=== PATIENT | female | born 1990 | race Caucasian/White ===

== ENCOUNTER 2017-12-28 16:41 | Inpatient (IN) | payer OTHER ==
[2017-12-28 18:30] VITALS: BMI 22.3
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
[2017-12-28] MEDS ORDERED: IBUPROFEN 400 MG TABLET (FP) PO PRN (21:23)
[2017-12-28] MEDS ORDERED: MAGNESIUM CITRATE 300 ML BOTTLE PO PRN (21:23)
[2017-12-28] MEDS ORDERED: guaiFENesin/D-METHORPHAN HB 10 ML UNIT-DOSE CUPS PO PRN (21:23)
[2017-12-28] MEDS ORDERED: diazePAM 5 MG TABLET PO ONE (21:23)
[2017-12-28] MEDS ORDERED: MAGNESIUM HYDROX 2400MG/30ML ORAL SUSPENSION 30 ML CUP PO PRN (21:23)
[2017-12-28] MEDS ORDERED: MAG HYDROX/AL HYDROX/SIMETH 30 ML UNIT-DOSE CUP PO PRN (21:23)
[2017-12-28] MEDS ORDERED: NICOTINE POLACRILEX 2 MG GUM BC PRN (21:23)
[2017-12-28] MEDS ORDERED: P-EPHED 60MG/TRIPROLIDI 2.5MG TABLET PO PRN (21:23)
[2017-12-28] MEDS ORDERED: LOPERAMIDE HCL 2 MG CAPSULE PO PRN (21:23)
[2017-12-28] MEDS ORDERED: MENTHOL/PHENOL 1 EACH UD MM PRN (21:23)
[2017-12-29 00:11] LABS: URINE APPEARANCE SLCLOUDY; URINE BILIRUBIN NEGATIVE (NEGATIVE); URINE BLOOD NEGATIVE (NEGATIVE); URINE COLOR LTYELLOW; URINE GLUCOSE (UA) NEGATIVE (NEGATIVE); URINE KETONE NEGATIVE (NEGATIVE); URINE LEUK ESTERASE TRACE (NEGATIVE); URINE NITRITE NEGATIVE (NEGATIVE); URINE PROTEIN NEGATIVE (NEGATIVE); URINE UROBILINOGEN NEGATIVE mg/dL (0.2-1.0)
[2017-12-29] MEDS: diazePAM 5 MG TABLET PO SCH ×4 (00:58→22:54)
[2017-12-29 01:01] LABS: EPI CELLS MODERATE /HPF (FEW); URINE BACTERIA RARE /hpf (NONE SEEN); URINE MUCUS RARE
[2017-12-29] MEDS: DOCUSATE SODIUM 100 MG CAPSULE (FP) PO SCH ×2 (01:06→22:54)
[2017-12-29] MEDS: THIAMINE HCL 100 MG TABLET (FP) PO SCH ×2 (01:06→22:53)
[2017-12-29] MEDS ORDERED: METHADONE HCL 10 MG TABLET ONE (04:51)
[2017-12-29] MEDS ORDERED: METHADONE HCL 5 MG TABLET ONE (04:51)
[2017-12-29] MEDS ORDERED: METHADONE HCL 40 MG DISPERSABLE TABLET ONE (04:51)
[2017-12-29] MEDS: METHADONE 80 MG, METHADONE 20 MG, METHADONE 5 MG PO SCH (05:32)
[2017-12-29] MEDS ORDERED: METHADONE HCL 10 MG TABLET PO SCH (06:00)
[2017-12-29] MEDS: diazePAM 5 MG TABLET PO PRN ×3 (10:32→18:03)
[2017-12-29] MEDS: PRENATAL VITAMINS W/ FOLIC ACID TABLET (FP) PO SCH (10:32)
[2017-12-29] MEDS: ACETAMINOPHEN 325 MG TABLET (FP) PO PRN (10:33)
[2017-12-29] MEDS: NICOTINE 21 MG/24 HOURS TOPICAL PATCH TD SCH (10:35)
[2017-12-29 10:55] LABS: HEMATOCRIT 34.6 % (32.4-45.2); HEMOGLOBIN 11.2 GM/dL (10.7-15.3); MCH 27.3 pg (25.7-33.7); MCHC 32.3 g/dl (32.0-36.0); MEAN CELL VOLUME 84.5 fl (80-96); MEAN PLT VOLUME 9.6 fl (7.5-11.1); PLATELET COUNT 204 K/MM3 (134-434); RBC 4.09 M/mm3 (3.60-5.2); RDW 17.6 % (11.6-15.6)
[2017-12-29 11:08] LABS: ALBUMIN 3.6 g/dl (3.4-5.0); ANION GAP 4 (8-16); BLOOD UREA NITROGEN 10 mg/dL (7-18); CALCIUM 9.2 mg/dL (8.5-10.1); CHLORIDE 101 mmol/L (98-107); CO2 35 mmol/L (21-32); CREATININE 0.8 mg/dL (0.55-1.02); GLUCOSE,RANDOM 94 mg/dL (74-106); SGOT/AST 22 U/L (15-37); SGPT/ALT 17 U/L (12-78); SODIUM 140 mmol/L (136-145)
[2017-12-29 11:10] LABS: ALK PHOS 99 U/L (45-117); BILIRUBIN,TOTAL 0.3 mg/dL (0.2-1.0); TOT PROT 7.1 g/dl (6.4-8.2)
--- NOTE | 2017-12-29 11:11 | EKG ---
Test Reason : Blood Pressure : / mmHG Vent. Rate : 062 BPM Atrial Rate : 062 BPM P-R Int : 134 ms QRS Dur : 082 ms QT Int : 454 ms P-R-T Axes : 048 066 039 degrees QTc Int : 460 ms SINUS RHYTHM WITH PREMATURE SUPRAVENTRICULAR COMPLEXES OTHERWISE NORMAL ECG NO PREVIOUS ECGS AVAILABLE Confirmed by NELIDA EASTON, KIERAN ([id number]) on 12/29/2017 11:11:08 AM Referred By: Arnoldo Napier Confirmed By:KIERAN KRAUSE MD
[2017-12-29] MEDS ORDERED: FLU VACCINE QUAD 60 MCG/0.5 ML (MDV 17-18) IM ONE (12:00)
--- NOTE | 2017-12-29 12:23 | PN ---
[facility] CIWA - CIWA Score Nausea/Vomitin-Mild Nausea/No Vomiting Muscle Tremors: 4-Moderate,w/Arms Extend Anxiety: 4-Mod. Anxious/Guarded Agitation: 4-Moderately Restless Paroxysmal Sweats: 1-Minimal Palms Moist Orientation: 1-Uncertain about Date Tacttile Disturbances: 1-Very Mild Itch/Numbness Auditory Disturbances: 0-None Visual Disturbances: 0-None Headache: 2-Mild CIWA-Ar Total Score: 18 BHS Progress Note (SOAP) Subjective: nausea sweat tremor anxiety irritable agitation Objective: 12/29/17 12:21 Vital Signs Temperature 97.7 F 12/29/17 11:42 Pulse Rate 52 L 12/29/17 11:42 Respiratory Rate 16 12/29/17 11:42 Blood Pressure 107/66 12/29/17 11:42 O2 Sat by Pulse Oximetry (%) Laboratory Last Values WBC 6.0 K/mm3 (4.0-10.0) 12/29/17 08:00 RBC 4.09 M/mm3 (3.60-5.2) 12/29/17 08:00 Hgb 11.2 GM/dL (10.7-15.3) 12/29/17 08:00 Hct 34.6 % (32.4-45.2) 12/29/17 08:00 MCV 84.5 fl (80-96) 12/29/17 08:00 MCH 27.3 pg (25.7-33.7) 12/29/17 08:00 MCHC 32.3 g/dl (32.0-36.0) 12/29/17 08:00 RDW 17.6 % (11.6-15.6) H 12/29/17 08:00 Plt Count 204 K/MM3 (134-434) 12/29/17 08:00 MPV 9.6 fl (7.5-11.1) 12/29/17 08:00 Sodium 140 mmol/L (136-145) 12/29/17 08:00 Potassium 5.0 mmol/L (3.5-5.1) 12/29/17 08:00 Chloride 101 mmol/L (98-107) 12/29/17 08:00 Carbon Dioxide 35 mmol/L (21-32) H 12/29/17 08:00 Anion Gap 4 (8-16) L 12/29/17 08:00 BUN 10 mg/dL (7-18) 12/29/17 08:00 Creatinine 0.8 mg/dL (0.55-1.02) 12/29/17 08:00 Creat Clearance w eGFR > 60 (>60) 12/29/17 08:00 Random Glucose 94 mg/dL (74-106) 12/29/17 08:00 Calcium 9.2 mg/dL (8.5-10.1) 12/29/17 08:00 Total Bilirubin 0.3 mg/dL (0.2-1.0) 12/29/17 08:00 AST 22 U/L (15-37) 12/29/17 08:00 ALT 17 U/L (12-78) 12/29/17 08:00 Alkaline Phosphatase 99 U/L (45-117) 12/29/17 08:00 Total Protein 7.1 g/dl (6.4-8.2) 12/29/17 08:00 Albumin 3.6 g/dl (3.4-5.0) 12/29/17 08:00 Urine Color Ltyellow 12/28/17 00:00 Urine Appearance Slcloudy 12/28/17 00:00 Urine pH 6.0 (5.0-8.0) 12/28/17 00:00 Ur Specific [place] 1.010 (1.001-1.035) 12/28/17 00:00 Urine Protein Negative (NEGATIVE) 12/28/17 00:00 Urine Glucose (UA) Negative (NEGATIVE) 12/28/17 00:00 Urine Ketones Negative (NEGATIVE) 12/28/17 00:00 Urine Blood Negative (NEGATIVE) 12/28/17 00:00 Urine Nitrite Negative (NEGATIVE) 12/28/17 00:00 Urine Bilirubin Negative (NEGATIVE) 12/28/17 00:00 Urine Urobilinogen Negative mg/dL (0.2-1.0) 12/28/17 00:00 Ur Leukocyte Esterase Trace (NEGATIVE) 12/28/17 00:00 Urine WBC (Auto) 1 /hpf (3-5) 12/28/17 00:00 Urine RBC (Auto) <1 /hpf (0-3) 12/28/17 00:00 Ur Epithelial Cells Moderate /HPF (FEW) 12/28/17 00:00 Urine Bacteria Rare /hpf (NONE SEEN) 12/28/17 00:00 Urine Mucus Rare 12/28/17 00:00 RPR Titer Nonreactive (NONREACTIVE) 12/29/17 08:00 HIV 1&2 Antibody Screen Negative 12/29/17 08:00 HIV P24 Antigen Negative 12/29/17 08:00 lab noted Assessment: 12/29/17 12:22 withdrawal sx Plan: continue detox
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
[2017-12-29] MEDS: SERTRALINE HCL 50 MG TABLET (FP) PO SCH (18:03)
[2017-12-29] MEDS: GABAPENTIN 300 MG CAPSULE (FP) PO SCH (22:54)
[2017-12-29] MEDS: MIRTAZAPINE 30 MG TABLET (FP) PO SCH (22:54)
[2017-12-30] MEDS ORDERED: METHADONE HCL 5 MG TABLET ONE (05:07)
[2017-12-30] MEDS ORDERED: METHADONE HCL 10 MG TABLET ONE (05:08)
[2017-12-30] MEDS ORDERED: METHADONE HCL 40 MG DISPERSABLE TABLET ONE (05:08)
[2017-12-30] MEDS: GABAPENTIN 300 MG CAPSULE (FP) PO SCH ×3 (06:00→22:29)
[2017-12-30] MEDS: METHADONE 80 MG, METHADONE 20 MG, METHADONE 5 MG PO SCH (06:00)
[2017-12-30] MEDS: diazePAM 5 MG TABLET PO PRN ×3 (07:00→18:50)
[2017-12-30] MEDS ORDERED: LEVOTHYROXINE NA 125 MCG TABLET (FP) PO SCH (07:00)
[2017-12-30] MEDS: diazePAM 5 MG TABLET PO SCH ×2 (10:29→22:29)
[2017-12-30] MEDS: ACETAMINOPHEN 325 MG TABLET (FP) PO PRN ×2 (10:30→15:38)
[2017-12-30] MEDS: NICOTINE 21 MG/24 HOURS TOPICAL PATCH TD SCH (10:30)
[2017-12-30] MEDS: PRENATAL VITAMINS W/ FOLIC ACID TABLET (FP) PO SCH (10:30)
[2017-12-30] MEDS: SERTRALINE HCL 50 MG TABLET (FP) PO SCH (10:30)
--- NOTE | 2017-12-30 12:17 | PN ---
S CIWA - CIWA Score Nausea/Vomitin Muscle Tremors: 3 Anxiety: 4-Mod. Anxious/Guarded Agitation: 3 Paroxysmal Sweats: 3 Orientation: 0-Oriented Tacttile Disturbances: 0-None Auditory Disturbances: 0-None Visual Disturbances: 0-None Headache: 0-None Present CIWA-Ar Total Score: 16 BHS Progress Note (SOAP) Subjective: tremulous sweats anxious Objective: 12/30/17 12:15 Sitting in day room A & O x 3 No acute distress Vital Signs Temperature 99.1 F 12/30/17 12:01 Pulse Rate 84 12/30/17 12:01 Respiratory Rate 19 12/30/17 12:01 Blood Pressure 108/65 12/30/17 12:01 O2 Sat by Pulse Oximetry (%) Laboratory Last Values WBC 6.0 K/mm3 (4.0-10.0) 12/29/17 08:00 RBC 4.09 M/mm3 (3.60-5.2) 12/29/17 08:00 Hgb 11.2 GM/dL (10.7-15.3) 12/29/17 08:00 Hct 34.6 % (32.4-45.2) 12/29/17 08:00 MCV 84.5 fl (80-96) 12/29/17 08:00 MCH 27.3 pg (25.7-33.7) 12/29/17 08:00 MCHC 32.3 g/dl (32.0-36.0) 12/29/17 08:00 RDW 17.6 % (11.6-15.6) H 12/29/17 08:00 Plt Count 204 K/MM3 (134-434) 12/29/17 08:00 MPV 9.6 fl (7.5-11.1) 12/29/17 08:00 Sodium 140 mmol/L (136-145) 12/29/17 08:00 Potassium 5.0 mmol/L (3.5-5.1) 12/29/17 08:00 Chloride 101 mmol/L (98-107) 12/29/17 08:00 Carbon Dioxide 35 mmol/L (21-32) H 12/29/17 08:00 Anion Gap 4 (8-16) L 12/29/17 08:00 BUN 10 mg/dL (7-18) 12/29/17 08:00 Creatinine 0.8 mg/dL (0.55-1.02) 12/29/17 08:00 Creat Clearance w eGFR > 60 (>60) 12/29/17 08:00 Random Glucose 94 mg/dL (74-106) 12/29/17 08:00 Calcium 9.2 mg/dL (8.5-10.1) 12/29/17 08:00 Total Bilirubin 0.3 mg/dL (0.2-1.0) 12/29/17 08:00 AST 22 U/L (15-37) 12/29/17 08:00 ALT 17 U/L (12-78) 12/29/17 08:00 Alkaline Phosphatase 99 U/L (45-117) 12/29/17 08:00 Total Protein 7.1 g/dl (6.4-8.2) 12/29/17 08:00 Albumin 3.6 g/dl (3.4-5.0) 12/29/17 08:00 TSH 206.00 uIU/ml (0.358-3.74) H 12/30/17 08:10 Free T4 0.46 ng/dl (0.76-1.46) L 12/30/17 08:10 Resin T3 Uptake 30.2 % (30-39) 12/30/17 08:10 Urine Color Ltyellow 12/28/17 00:00 Urine Appearance Slcloudy 12/28/17 00:00 Urine pH 6.0 (5.0-8.0) 12/28/17 00:00 Ur Specific [place] 1.010 (1.001-1.035) 12/28/17 00:00 Urine Protein Negative (NEGATIVE) 12/28/17 00:00 Urine Glucose (UA) Negative (NEGATIVE) 12/28/17 00:00 Urine Ketones Negative (NEGATIVE) 12/28/17 00:00 Urine Blood Negative (NEGATIVE) 12/28/17 00:00 Urine Nitrite Negative (NEGATIVE) 12/28/17 00:00 Urine Bilirubin Negative (NEGATIVE) 12/28/17 00:00 Urine Urobilinogen Negative mg/dL (0.2-1.0) 12/28/17 00:00 Ur Leukocyte Esterase Trace (NEGATIVE) 12/28/17 00:00 Urine WBC (Auto) 1 /hpf (3-5) 12/28/17 00:00 Urine RBC (Auto) <1 /hpf (0-3) 12/28/17 00:00 Ur Epithelial Cells Moderate /HPF (FEW) 12/28/17 00:00 Urine Bacteria Rare /hpf (NONE SEEN) 12/28/17 00:00 Urine Mucus Rare 12/28/17 00:00 RPR Titer Nonreactive (NONREACTIVE) 12/29/17 08:00 HIV 1&2 Antibody Screen Negative 12/29/17 08:00 HIV P24 Antigen Negative 12/29/17 08:00 Labs noted Assessment: 12/30/17 12:16 withdrawal sx Plan: continue detox
[2017-12-30] MEDS ORDERED: LEVOTHYROXINE NA 125 MCG TABLET (FP) PO ONE (15:29)
--- NOTE | 2017-12-30 15:35 | PN ---
BHS Progress Note Note: Pt's TSH high, confirms hypothyroidism. levothyroxine as ordered. To start today. EKG reviewed.
[2017-12-30] MEDS: DOCUSATE SODIUM 100 MG CAPSULE (FP) PO SCH (22:29)
[2017-12-30] MEDS: THIAMINE HCL 100 MG TABLET (FP) PO SCH (22:29)
[2017-12-30] MEDS: MIRTAZAPINE 30 MG TABLET (FP) PO SCH (22:29)
[2017-12-31] MEDS: GABAPENTIN 300 MG CAPSULE (FP) PO SCH ×3 (05:59→22:16)
[2017-12-31] MEDS: LEVOTHYROXINE 25 MCG, LEVOTHYROXINE 100 MCG PO SCH (08:05)
[2017-12-31] MEDS ORDERED: METHADONE HCL 10 MG TABLET PO SCH (08:30)
[2017-12-31] MEDS: diazePAM 5 MG TABLET PO PRN ×3 (08:34→17:17)
[2017-12-31] MEDS ORDERED: METHADONE HCL 5 MG TABLET ONE (08:44)
[2017-12-31] MEDS ORDERED: METHADONE HCL 10 MG TABLET ONE (08:46)
[2017-12-31] MEDS ORDERED: METHADONE HCL 40 MG DISPERSABLE TABLET ONE (08:46)
[2017-12-31] MEDS: PRENATAL VITAMINS W/ FOLIC ACID TABLET (FP) PO SCH (09:03)
[2017-12-31] MEDS: METHOCARBAMOL 500 MG TABLET PO PRN ×3 (09:03→22:17)
[2017-12-31] MEDS: SERTRALINE HCL 50 MG TABLET (FP) PO SCH (09:03)
[2017-12-31] MEDS: METHADONE 80 MG, METHADONE 20 MG, METHADONE 5 MG PO SCH (09:03)
[2017-12-31] MEDS: NICOTINE 21 MG/24 HOURS TOPICAL PATCH TD SCH (09:03)
[2017-12-31] MEDS: diazePAM 5 MG TABLET PO SCH ×2 (10:46→22:17)
[2017-12-31] MEDS ORDERED: COLLOIDAL OATMEAL 1 BAR EACH TP PRN (11:37)
--- NOTE | 2017-12-31 11:40 | PN ---
BHS Progress Note (SOAP) Subjective: alert oriented x 3 less tremor no sweat tolerates food and fluid well Objective: 12/31/17 11:39 Vital Signs Temperature 98.7 F 12/31/17 10:34 Pulse Rate 82 12/31/17 10:34 Respiratory Rate 18 12/31/17 10:34 Blood Pressure 137/70 12/31/17 10:34 O2 Sat by Pulse Oximetry (%) Laboratory Last Values WBC 6.0 K/mm3 (4.0-10.0) 12/29/17 08:00 RBC 4.09 M/mm3 (3.60-5.2) 12/29/17 08:00 Hgb 11.2 GM/dL (10.7-15.3) 12/29/17 08:00 Hct 34.6 % (32.4-45.2) 12/29/17 08:00 MCV 84.5 fl (80-96) 12/29/17 08:00 MCH 27.3 pg (25.7-33.7) 12/29/17 08:00 MCHC 32.3 g/dl (32.0-36.0) 12/29/17 08:00 RDW 17.6 % (11.6-15.6) H 12/29/17 08:00 Plt Count 204 K/MM3 (134-434) 12/29/17 08:00 MPV 9.6 fl (7.5-11.1) 12/29/17 08:00 Sodium 140 mmol/L (136-145) 12/29/17 08:00 Potassium 5.0 mmol/L (3.5-5.1) 12/29/17 08:00 Chloride 101 mmol/L (98-107) 12/29/17 08:00 Carbon Dioxide 35 mmol/L (21-32) H 12/29/17 08:00 Anion Gap 4 (8-16) L 12/29/17 08:00 BUN 10 mg/dL (7-18) 12/29/17 08:00 Creatinine 0.8 mg/dL (0.55-1.02) 12/29/17 08:00 Creat Clearance w eGFR > 60 (>60) 12/29/17 08:00 Random Glucose 94 mg/dL (74-106) 12/29/17 08:00 Calcium 9.2 mg/dL (8.5-10.1) 12/29/17 08:00 Total Bilirubin 0.3 mg/dL (0.2-1.0) 12/29/17 08:00 AST 22 U/L (15-37) 12/29/17 08:00 ALT 17 U/L (12-78) 12/29/17 08:00 Alkaline Phosphatase 99 U/L (45-117) 12/29/17 08:00 Total Protein 7.1 g/dl (6.4-8.2) 12/29/17 08:00 Albumin 3.6 g/dl (3.4-5.0) 12/29/17 08:00 TSH 206.00 uIU/ml (0.358-3.74) H 12/30/17 08:10 Free T4 0.46 ng/dl (0.76-1.46) L 12/30/17 08:10 Resin T3 Uptake 30.2 % (30-39) 12/30/17 08:10 Urine Color Ltyellow 12/28/17 00:00 Urine Appearance Slcloudy 12/28/17 00:00 Urine pH 6.0 (5.0-8.0) 12/28/17 00:00 Ur Specific [place] 1.010 (1.001-1.035) 12/28/17 00:00 Urine Protein Negative (NEGATIVE) 12/28/17 00:00 Urine Glucose (UA) Negative (NEGATIVE) 12/28/17 00:00 Urine Ketones Negative (NEGATIVE) 12/28/17 00:00 Urine Blood Negative (NEGATIVE) 12/28/17 00:00 Urine Nitrite Negative (NEGATIVE) 12/28/17 00:00 Urine Bilirubin Negative (NEGATIVE) 12/28/17 00:00 Urine Urobilinogen Negative mg/dL (0.2-1.0) 12/28/17 00:00 Ur Leukocyte Esterase Trace (NEGATIVE) 12/28/17 00:00 Urine WBC (Auto) 1 /hpf (3-5) 12/28/17 00:00 Urine RBC (Auto) <1 /hpf (0-3) 12/28/17 00:00 Ur Epithelial Cells Moderate /HPF (FEW) 12/28/17 00:00 Urine Bacteria Rare /hpf (NONE SEEN) 12/28/17 00:00 Urine Mucus Rare 12/28/17 00:00 RPR Titer Nonreactive (NONREACTIVE) 12/29/17 08:00 Hepatitis C Antibody >11.0 s/co ratio (0.0-0.9) H 12/29/17 08:00 HIV 1&2 Antibody Screen Negative 12/29/17 08:00 HIV P24 Antigen Negative 12/29/17 08:00 12/31/17 11:42 lab noted non compliance with synthroid history of hepatitis c Assessment: 12/31/17 11:42 mild withdrawal sx hypothyroid 12/31/17 11:43 positive hepatitis c virus Plan: medically supervised detox health teaching on benefits of synthroid compliance encourage seek hepatitis c treatment with primary care provider
[2017-12-31] MEDS ORDERED: MINERAL OIL/PETROLAT/WATER TOPICAL CREAM 113 GM JAR TP SCH (22:00)
[2017-12-31] MEDS: DOCUSATE SODIUM 100 MG CAPSULE (FP) PO SCH (22:15)
[2017-12-31] MEDS: MIRTAZAPINE 30 MG TABLET (FP) PO SCH (22:16)
[2017-12-31] MEDS: THIAMINE HCL 100 MG TABLET (FP) PO SCH (22:17)
[2018-01-01] MEDS ORDERED: METHADONE HCL 5 MG TABLET ONE (04:23)
[2018-01-01] MEDS ORDERED: METHADONE HCL 40 MG DISPERSABLE TABLET ONE (04:23)
[2018-01-01] MEDS ORDERED: METHADONE HCL 10 MG TABLET ONE (04:24)
[2018-01-01] MEDS ORDERED: LEVOTHYROXINE NA 25 MCG TABLET (FP) ONE (04:24)
[2018-01-01] MEDS ORDERED: LEVOTHYROXINE NA 100 MCG TABLET (FP) ONE (04:24)
[2018-01-01] MEDS: METHADONE 80 MG, METHADONE 20 MG, METHADONE 5 MG PO SCH (05:59)
[2018-01-01] MEDS: LEVOTHYROXINE 25 MCG, LEVOTHYROXINE 100 MCG PO SCH (06:00)
[2018-01-01] MEDS: GABAPENTIN 300 MG CAPSULE (FP) PO SCH (06:00)
--- NOTE | 2018-01-01 08:38 | DS ---
[facility] Detox Discharge Summary Admission Date: 12/28/17 Discharge Date: 01/01/18 - History Present History: Alcohol Dependence, MMTP Additional Comments: [facility] Pertinent Past History: anxiety, depression, inosmnia, nicotine dependence, hypothyroidism - Physical Exam Results Vital Signs: Vital Signs Temperature 97.7 F 01/01/18 06:00 Pulse Rate 64 01/01/18 06:00 Respiratory Rate 18 01/01/18 06:00 Blood Pressure 104/72 01/01/18 06:00 O2 Sat by Pulse Oximetry (%) Laboratory Tests 12/28/17 12/29/17 12/29/17 00:00 08:00 08:00 WBC 6.0 RBC 4.09 Hgb 11.2 Hct 34.6 MCV 84.5 MCH 27.3 MCHC 32.3 RDW 17.6 H Plt Count 204 MPV 9.6 Sodium Potassium Chloride Carbon Dioxide Anion Gap BUN Creatinine Creat Clearance w eGFR Random Glucose Calcium Total Bilirubin AST ALT Alkaline Phosphatase Total Protein Albumin TSH Free T4 Resin T3 Uptake Urine Color Ltyellow Urine Appearance Slcloudy Urine pH 6.0 Ur Specific [place] 1.010 Urine Protein Negative Urine Glucose (UA) Negative Urine Ketones Negative Urine Blood Negative Urine Nitrite Negative Urine Bilirubin Negative Urine Urobilinogen Negative Ur Leukocyte Esterase Trace Urine WBC (Auto) 1 Urine RBC (Auto) <1 Ur Epithelial Cells Moderate Urine Bacteria Rare Urine Mucus Rare RPR Titer Hepatitis C Antibody >11.0 H HIV 1&2 Antibody Screen HIV P24 Antigen 12/29/17 12/29/17 12/29/17 08:00 08:00 08:00 WBC RBC Hgb Hct MCV MCH MCHC RDW Plt Count MPV Sodium 140 Potassium 5.0 Chloride 101 Carbon Dioxide 35 H Anion Gap 4 L BUN 10 Creatinine 0.8 Creat Clearance w eGFR > 60 Random Glucose 94 Calcium 9.2 Total Bilirubin 0.3 AST 22 ALT 17 Alkaline Phosphatase 99 Total Protein 7.1 Albumin 3.6 TSH Free T4 Resin T3 Uptake Urine Color Urine Appearance Urine pH Ur Specific [place] Urine Protein Urine Glucose (UA) Urine Ketones Urine Blood Urine Nitrite Urine Bilirubin Urine Urobilinogen Ur Leukocyte Esterase Urine WBC (Auto) Urine RBC (Auto) Ur Epithelial Cells Urine Bacteria Urine Mucus RPR Titer Nonreactive Hepatitis C Antibody HIV 1&2 Antibody Screen Negative HIV P24 Antigen Negative 12/30/17 08:10 WBC RBC Hgb Hct MCV MCH MCHC RDW Plt Count MPV Sodium Potassium Chloride Carbon Dioxide Anion Gap BUN Creatinine Creat Clearance w eGFR Random Glucose Calcium Total Bilirubin AST ALT Alkaline Phosphatase Total Protein Albumin TSH 206.00 H Free T4 0.46 L Resin T3 Uptake 30.2 Urine Color Urine Appearance Urine pH Ur Specific [place] Urine Protein Urine Glucose (UA) Urine Ketones Urine Blood Urine Nitrite Urine Bilirubin Urine Urobilinogen Ur Leukocyte Esterase Urine WBC (Auto) Urine RBC (Auto) Ur Epithelial Cells Urine Bacteria Urine Mucus RPR Titer Hepatitis C Antibody HIV 1&2 Antibody Screen HIV P24 Antigen Pertinent Admission Physical Exam Findings: withdrawal sx, hypothyroidsim - Treatment Hospital Course: Detox Protocol Followed, Detoxed Safely, Responded well, Discharged Condition Good, Rehab Referral Accepted Patient has Accepted a Rehab Referral to: yes - Medication Discharge Medications: Ambulatory Orders Methadone [Dolophine -] 105 mg PO DAILY 12/28/17 Gabapentin 600 mg PO TID #90 tablet 12/29/17 Mirtazapine [Remeron -] 30 mg PO HS #30 tablet 12/29/17 Sertraline HCl [Zoloft -] 100 mg PO DAILY #30 tablet 12/29/17 Levothyroxine [Synthroid -] 125 mcg PO DAILY #30 tablet 01/01/18 - Diagnosis (1) Alcohol dependence with uncomplicated withdrawal Current Visit: Yes Status: Acute (2) Hepatitis C antibody positive in blood Current Visit: Yes Status: Acute (3) Substance induced mood disorder Current Visit: Yes Status: Acute (4) Substance-induced sleep disorder Current Visit: Yes Status: Acute (5) Hypothyroidism Current Visit: Yes Status: Chronic (6) Nicotine dependence Current Visit: Yes Status: Chronic Qualifiers: Nicotine product type: cigarettes Substance use status: uncomplicated Qualified Code(s): F17.210 - Nicotine dependence, cigarettes, uncomplicated (7) Opioid dependence on agonist therapy Current Visit: Yes Status: Chronic - AMA Did Patient Leave Against Medical Advice: No
[2018-01-01] MEDS ORDERED: diazePAM 5 MG TABLET PO SCH (10:00)
[2018-01-01] MEDS: SERTRALINE HCL 50 MG TABLET (FP) PO SCH (10:12)
[2018-01-01] MEDS: PRENATAL VITAMINS W/ FOLIC ACID TABLET (FP) PO SCH (10:12)
[2018-01-01] MEDS: NICOTINE 21 MG/24 HOURS TOPICAL PATCH TD SCH (10:12)
[2018-01-01] MEDS: METHOCARBAMOL 500 MG TABLET PO PRN (10:13)
[2018-01-01 10:35] VITALS: BP 107/68; PULSE 95; TEMP 99
== END 2018-01-01 13:05 | disposition other institution (70) | DRG 773 ==
LOC: YASAS 16:41 → Y6N 19:57
PROVIDERS: ADMIT Internal Medicine; ATTEND Internal Medicine
PROC: HZ2ZZZZ Detoxification Services for Substance Abuse Treatment (ICD-10-PCS; principal; 2017-12-28)
DX: F11.20 Opioid dependence, uncomplicated (principal); F10.230 Alcohol dependence with withdrawal, uncomplicated; F17.210 Nicotine dependence, cigarettes, uncomplicated; F19.24 Other psychoactive substance dependence with psychoactive substance-induced mood disorder; F19.282 Other psychoactive substance dependence with psychoactive substance-induced sleep disorder; F39 Unspecified mood [affective] disorder; B18.2 Chronic viral hepatitis C; E03.9 Hypothyroidism, unspecified; D64.9 Anemia, unspecified
CPT/HCPCS: 36415; 80053; 81003; 81015; 84439; 84443; 84479; 85027; 86593; 86803; 87389; 87522; 93005; 93010

== ENCOUNTER 2018-01-01 13:34 | Inpatient (IN) | payer OTHER ==
[2018-01-01] MEDS ORDERED: MENTHOL/PHENOL 1 EACH UD MM PRN (15:04)
[2018-01-01] MEDS ORDERED: NICOTINE POLACRILEX 2 MG GUM BUC PRN (15:04)
[2018-01-01] MEDS ORDERED: MAGNESIUM CITRATE 300 ML BOTTLE PO PRN (15:04)
[2018-01-01] MEDS ORDERED: P-EPHED 60MG/TRIPROLIDI 2.5MG TABLET PO PRN (15:04)
[2018-01-01] MEDS ORDERED: LOPERAMIDE HCL 2 MG CAPSULE PO PRN (15:04)
[2018-01-01] MEDS ORDERED: MAG HYDROX/AL HYDROX/SIMETH 30 ML UNIT-DOSE CUP PO PRN (15:04)
[2018-01-01] MEDS ORDERED: MAGNESIUM HYDROX 2400MG/30ML ORAL SUSPENSION 30 ML CUP PO PRN (15:04)
[2018-01-01] MEDS ORDERED: guaiFENesin/D-METHORPHAN HB 10 ML UNIT-DOSE CUPS PO PRN (15:04)
[2018-01-01] MEDS ORDERED: hydrOXYzine PAMOATE 50 MG CAPSULE (FP) PO PRN (15:04)
--- NOTE | 2018-01-01 15:04 | HP ---
JANEL EASTON Rehab Assess/Revision - Admission History Admitted to Rehab from: [facility] [place] Date of Admission to Rehab: 01/01/2018 - Vital signs Vital Signs: Vital Signs Period Temp Pulse Resp BP Sys/James Pulse Ox Last 24 Hr 98.3 F 82 16 104/74 - Findings Detox History & Physical reviewed: Yes Concur with findings: Yes Inpatient Rehab Admission - Initial Determination Are CD services needed?: Yes Free of communicable disease: Yes Not in need of hospitalization: Yes - Rehab Admission Criteria Comorbidities: Yes Lacks judgement: Yes Patient is meeting Inpatient Rehab admission criteria:: Yes
[2018-01-01] MEDS ORDERED: LEVOTHYROXINE 100 MCG, LEVOTHYROXINE 25 MCG PO ONE (15:15)
[2018-01-01] MEDS ORDERED: LEVOTHYROXINE NA 125 MCG TABLET (FP) PO SCH (15:15)
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
[2018-01-01] MEDS: GABAPENTIN 300 MG CAPSULE (FP) PO SCH ×2 (17:21→21:32)
[2018-01-01] MEDS: NICOTINE 14 MG/24 HOURS TOPICAL PATCH TD SCH (17:22)
[2018-01-01] MEDS: IBUPROFEN 400 MG TABLET (FP) PO PRN (17:25)
[2018-01-01] MEDS: MIRTAZAPINE 30 MG TABLET (FP) PO SCH (21:31)
[2018-01-01] MEDS: DOCUSATE SODIUM 100 MG CAPSULE (FP) PO SCH (21:31)
[2018-01-01] MEDS: MINERAL OIL/PETROLAT/WATER TOPICAL CREAM 113 GM JAR TP SCH (21:33)
[2018-01-01] MEDS: THIAMINE HCL 100 MG TABLET (FP) PO SCH (21:33)
[2018-01-01] MEDS ORDERED: PT OWN MED DRAWER 7, Y5N ONE (21:48)
[2018-01-02] MEDS ORDERED: METHADONE HCL 10 MG TABLET PO SCH (06:00)
[2018-01-02] MEDS ORDERED: METHADONE HCL 5 MG TABLET ONE (06:09)
[2018-01-02] MEDS ORDERED: METHADONE HCL 40 MG DISPERSABLE TABLET ONE (06:09)
[2018-01-02] MEDS ORDERED: METHADONE HCL 10 MG TABLET ONE (06:09)
[2018-01-02] MEDS ORDERED: LEVOTHYROXINE NA 25 MCG TABLET (FP) ONE (06:10)
[2018-01-02] MEDS ORDERED: LEVOTHYROXINE NA 100 MCG TABLET (FP) ONE (06:10)
[2018-01-02] MEDS: METHADONE 80 MG, METHADONE 20 MG, METHADONE 5 MG PO SCH (06:27)
[2018-01-02] MEDS: LEVOTHYROXINE 100 MCG, LEVOTHYROXINE 25 MCG PO SCH (06:28)
[2018-01-02] MEDS: GABAPENTIN 300 MG CAPSULE (FP) PO SCH ×3 (06:28→21:11)
[2018-01-02] MEDS: MINERAL OIL/PETROLAT/WATER TOPICAL CREAM 113 GM JAR TP SCH ×2 (09:47→21:13)
[2018-01-02] MEDS: NICOTINE 14 MG/24 HOURS TOPICAL PATCH TD SCH (09:48)
[2018-01-02] MEDS: PRENATAL VITAMINS W/ FOLIC ACID TABLET (FP) PO SCH (09:49)
[2018-01-02] MEDS: SERTRALINE HCL 50 MG TABLET (FP) PO SCH (09:49)
[2018-01-02] MEDS: THIAMINE HCL 100 MG TABLET (FP) PO SCH (21:11)
[2018-01-02] MEDS: DOCUSATE SODIUM 100 MG CAPSULE (FP) PO SCH (21:11)
[2018-01-02] MEDS: MIRTAZAPINE 30 MG TABLET (FP) PO SCH (21:11)
[2018-01-02] MEDS: METHOCARBAMOL 500 MG TABLET PO SCH (21:14)
[2018-01-03] MEDS ORDERED: METHADONE HCL 40 MG DISPERSABLE TABLET ONE (05:47)
[2018-01-03] MEDS ORDERED: METHADONE HCL 10 MG TABLET ONE (05:47)
[2018-01-03] MEDS ORDERED: METHADONE HCL 5 MG TABLET ONE (05:47)
[2018-01-03] MEDS ORDERED: LEVOTHYROXINE NA 25 MCG TABLET (FP) ONE (05:48)
[2018-01-03] MEDS ORDERED: LEVOTHYROXINE NA 100 MCG TABLET (FP) ONE (05:48)
[2018-01-03] MEDS: METHADONE 80 MG, METHADONE 20 MG, METHADONE 5 MG PO SCH (06:40)
[2018-01-03] MEDS: GABAPENTIN 300 MG CAPSULE (FP) PO SCH ×3 (06:41→21:06)
[2018-01-03] MEDS: LEVOTHYROXINE 100 MCG, LEVOTHYROXINE 25 MCG PO SCH (06:41)
[2018-01-03] MEDS ORDERED: PT OWN MED DRAWER 7, Y5N ONE ×2 (08:54→11:01)
[2018-01-03] MEDS: METHOCARBAMOL 500 MG TABLET PO SCH ×2 (09:52→21:07)
[2018-01-03] MEDS: PRENATAL VITAMINS W/ FOLIC ACID TABLET (FP) PO SCH (09:52)
[2018-01-03] MEDS: NICOTINE 14 MG/24 HOURS TOPICAL PATCH TD SCH (09:53)
[2018-01-03] MEDS: SERTRALINE HCL 50 MG TABLET (FP) PO SCH (09:53)
[2018-01-03] MEDS: MINERAL OIL/PETROLAT/WATER TOPICAL CREAM 113 GM JAR TP SCH ×2 (10:55→21:08)
[2018-01-03] MEDS: THIAMINE HCL 100 MG TABLET (FP) PO SCH (21:06)
[2018-01-03] MEDS: DOCUSATE SODIUM 100 MG CAPSULE (FP) PO SCH (21:06)
[2018-01-03] MEDS: MIRTAZAPINE 30 MG TABLET (FP) PO SCH (21:07)
[2018-01-04] MEDS ORDERED: METHADONE HCL 10 MG TABLET ONE (03:09)
[2018-01-04] MEDS ORDERED: METHADONE HCL 5 MG TABLET ONE (03:09)
[2018-01-04] MEDS ORDERED: METHADONE HCL 40 MG DISPERSABLE TABLET ONE (03:09)
[2018-01-04] MEDS ORDERED: LEVOTHYROXINE NA 100 MCG TABLET (FP) ONE (03:10)
[2018-01-04] MEDS ORDERED: LEVOTHYROXINE NA 25 MCG TABLET (FP) ONE (03:10)
[2018-01-04] MEDS: METHADONE 80 MG, METHADONE 20 MG, METHADONE 5 MG PO SCH (06:26)
[2018-01-04] MEDS: GABAPENTIN 300 MG CAPSULE (FP) PO SCH ×3 (06:27→21:10)
[2018-01-04] MEDS: LEVOTHYROXINE 100 MCG, LEVOTHYROXINE 25 MCG PO SCH (06:27)
[2018-01-04] MEDS: NICOTINE 14 MG/24 HOURS TOPICAL PATCH TD SCH (09:37)
[2018-01-04] MEDS: PRENATAL VITAMINS W/ FOLIC ACID TABLET (FP) PO SCH (09:37)
[2018-01-04] MEDS: METHOCARBAMOL 500 MG TABLET PO SCH ×2 (09:37→21:10)
[2018-01-04] MEDS: MINERAL OIL/PETROLAT/WATER TOPICAL CREAM 113 GM JAR TP SCH ×2 (09:37→21:10)
[2018-01-04] MEDS: SERTRALINE HCL 50 MG TABLET (FP) PO SCH (09:38)
[2018-01-04] MEDS: IBUPROFEN 400 MG TABLET (FP) PO PRN (15:52)
[2018-01-04] MEDS ORDERED: PT OWN MED DRAWER 7, Y5N ONE (19:03)
[2018-01-04] MEDS: DOCUSATE SODIUM 100 MG CAPSULE (FP) PO SCH (21:09)
[2018-01-04] MEDS: THIAMINE HCL 100 MG TABLET (FP) PO SCH (21:09)
[2018-01-04] MEDS: MIRTAZAPINE 30 MG TABLET (FP) PO SCH (21:09)
[2018-01-05] MEDS ORDERED: METHADONE HCL 10 MG TABLET ONE (03:11)
[2018-01-05] MEDS ORDERED: METHADONE HCL 5 MG TABLET ONE (03:11)
[2018-01-05] MEDS ORDERED: METHADONE HCL 40 MG DISPERSABLE TABLET ONE (03:12)
[2018-01-05] MEDS ORDERED: LEVOTHYROXINE NA 25 MCG TABLET (FP) ONE (03:12)
[2018-01-05] MEDS ORDERED: LEVOTHYROXINE NA 100 MCG TABLET (FP) ONE (03:12)
[2018-01-05] MEDS: METHADONE 80 MG, METHADONE 20 MG, METHADONE 5 MG PO SCH (06:29)
[2018-01-05] MEDS: GABAPENTIN 300 MG CAPSULE (FP) PO SCH ×3 (06:30→21:33)
[2018-01-05] MEDS: LEVOTHYROXINE 100 MCG, LEVOTHYROXINE 25 MCG PO SCH (06:31)
[2018-01-05] MEDS: MINERAL OIL/PETROLAT/WATER TOPICAL CREAM 113 GM JAR TP SCH ×2 (09:40→21:34)
[2018-01-05] MEDS: NICOTINE 14 MG/24 HOURS TOPICAL PATCH TD SCH (09:40)
[2018-01-05] MEDS: METHOCARBAMOL 500 MG TABLET PO SCH ×3 (09:41→21:34)
[2018-01-05] MEDS: SERTRALINE HCL 50 MG TABLET (FP) PO SCH (09:41)
[2018-01-05] MEDS: PRENATAL VITAMINS W/ FOLIC ACID TABLET (FP) PO SCH (09:41)
[2018-01-05] MEDS: THIAMINE HCL 100 MG TABLET (FP) PO SCH (21:34)
[2018-01-05] MEDS: DOCUSATE SODIUM 100 MG CAPSULE (FP) PO SCH (21:34)
[2018-01-05] MEDS: MIRTAZAPINE 30 MG TABLET (FP) PO SCH (21:34)
[2018-01-06] MEDS ORDERED: METHADONE HCL 10 MG TABLET ONE (02:58)
[2018-01-06] MEDS ORDERED: METHADONE HCL 5 MG TABLET ONE (02:58)
[2018-01-06] MEDS ORDERED: METHADONE HCL 40 MG DISPERSABLE TABLET ONE (02:58)
[2018-01-06] MEDS ORDERED: LEVOTHYROXINE NA 25 MCG TABLET (FP) ONE (03:01)
[2018-01-06] MEDS ORDERED: LEVOTHYROXINE NA 100 MCG TABLET (FP) ONE (03:01)
[2018-01-06] MEDS: METHADONE 80 MG, METHADONE 20 MG, METHADONE 5 MG PO SCH (06:05)
[2018-01-06] MEDS: METHOCARBAMOL 500 MG TABLET PO SCH ×3 (06:06→21:12)
[2018-01-06] MEDS: GABAPENTIN 300 MG CAPSULE (FP) PO SCH ×3 (06:06→21:12)
[2018-01-06] MEDS: LEVOTHYROXINE 100 MCG, LEVOTHYROXINE 25 MCG PO SCH (06:06)
[2018-01-06] MEDS ORDERED: PT OWN MED DRAWER 7, Y5N ONE (08:29)
[2018-01-06] MEDS: SERTRALINE HCL 50 MG TABLET (FP) PO SCH (09:56)
[2018-01-06] MEDS: PRENATAL VITAMINS W/ FOLIC ACID TABLET (FP) PO SCH (09:56)
[2018-01-06] MEDS: NICOTINE 14 MG/24 HOURS TOPICAL PATCH TD SCH (09:56)
[2018-01-06] MEDS: MINERAL OIL/PETROLAT/WATER TOPICAL CREAM 113 GM JAR TP SCH ×2 (09:56→21:13)
[2018-01-06] MEDS: MIRTAZAPINE 30 MG TABLET (FP) PO SCH (21:12)
[2018-01-06] MEDS: DOCUSATE SODIUM 100 MG CAPSULE (FP) PO SCH (21:12)
[2018-01-06] MEDS: THIAMINE HCL 100 MG TABLET (FP) PO SCH (21:12)
[2018-01-07] MEDS ORDERED: METHADONE HCL 10 MG TABLET ONE (05:38)
[2018-01-07] MEDS ORDERED: METHADONE HCL 5 MG TABLET ONE (05:38)
[2018-01-07] MEDS ORDERED: LEVOTHYROXINE NA 100 MCG TABLET (FP) ONE (05:39)
[2018-01-07] MEDS ORDERED: METHADONE HCL 40 MG DISPERSABLE TABLET ONE (05:39)
[2018-01-07] MEDS ORDERED: LEVOTHYROXINE NA 25 MCG TABLET (FP) ONE (05:40)
[2018-01-07] MEDS: GABAPENTIN 300 MG CAPSULE (FP) PO SCH ×3 (06:27→21:10)
[2018-01-07] MEDS: LEVOTHYROXINE 100 MCG, LEVOTHYROXINE 25 MCG PO SCH (06:27)
[2018-01-07] MEDS: METHOCARBAMOL 500 MG TABLET PO SCH ×3 (06:27→21:10)
[2018-01-07] MEDS: METHADONE 80 MG, METHADONE 20 MG, METHADONE 5 MG PO SCH (06:28)
[2018-01-07] MEDS: SERTRALINE HCL 50 MG TABLET (FP) PO SCH (10:06)
[2018-01-07] MEDS: PRENATAL VITAMINS W/ FOLIC ACID TABLET (FP) PO SCH (10:06)
[2018-01-07] MEDS: MINERAL OIL/PETROLAT/WATER TOPICAL CREAM 113 GM JAR TP SCH ×2 (10:07→21:11)
[2018-01-07] MEDS: NICOTINE 14 MG/24 HOURS TOPICAL PATCH TD SCH (10:07)
[2018-01-07] MEDS: DOCUSATE SODIUM 100 MG CAPSULE (FP) PO SCH (21:09)
[2018-01-07] MEDS: THIAMINE HCL 100 MG TABLET (FP) PO SCH (21:10)
[2018-01-07] MEDS: MIRTAZAPINE 30 MG TABLET (FP) PO SCH (21:10)
[2018-01-07] MEDS ORDERED: PT OWN MED DRAWER 7, Y5N ONE (22:06)
[2018-01-08] MEDS ORDERED: METHADONE HCL 5 MG TABLET ONE (03:22)
[2018-01-08] MEDS ORDERED: METHADONE HCL 40 MG DISPERSABLE TABLET ONE (03:22)
[2018-01-08] MEDS ORDERED: METHADONE HCL 10 MG TABLET ONE (03:22)
[2018-01-08] MEDS ORDERED: LEVOTHYROXINE NA 25 MCG TABLET (FP) ONE (03:23)
[2018-01-08] MEDS ORDERED: LEVOTHYROXINE NA 100 MCG TABLET (FP) ONE (03:23)
[2018-01-08] MEDS: METHADONE 80 MG, METHADONE 20 MG, METHADONE 5 MG PO SCH (06:49)
[2018-01-08] MEDS: LEVOTHYROXINE 100 MCG, LEVOTHYROXINE 25 MCG PO SCH (06:50)
[2018-01-08] MEDS: GABAPENTIN 300 MG CAPSULE (FP) PO SCH ×3 (06:50→21:11)
[2018-01-08] MEDS: METHOCARBAMOL 500 MG TABLET PO SCH ×3 (06:50→21:11)
[2018-01-08] MEDS ORDERED: PT OWN MED DRAWER 7, Y5N ONE (08:48)
[2018-01-08] MEDS: NICOTINE 14 MG/24 HOURS TOPICAL PATCH TD SCH (09:46)
[2018-01-08] MEDS: SERTRALINE HCL 50 MG TABLET (FP) PO SCH (09:46)
[2018-01-08] MEDS: PRENATAL VITAMINS W/ FOLIC ACID TABLET (FP) PO SCH (09:46)
[2018-01-08] MEDS: MINERAL OIL/PETROLAT/WATER TOPICAL CREAM 113 GM JAR TP SCH ×2 (09:48→21:11)
[2018-01-08] MEDS: DOCUSATE SODIUM 100 MG CAPSULE (FP) PO SCH (21:11)
[2018-01-08] MEDS: THIAMINE HCL 100 MG TABLET (FP) PO SCH (21:11)
[2018-01-08] MEDS: MIRTAZAPINE 30 MG TABLET (FP) PO SCH (21:11)
[2018-01-09] MEDS ORDERED: METHADONE HCL 5 MG TABLET ONE (03:05)
[2018-01-09] MEDS ORDERED: METHADONE HCL 10 MG TABLET ONE (03:06)
[2018-01-09] MEDS ORDERED: METHADONE HCL 40 MG DISPERSABLE TABLET ONE (03:06)
[2018-01-09] MEDS ORDERED: LEVOTHYROXINE NA 100 MCG TABLET (FP) ONE (03:07)
[2018-01-09] MEDS ORDERED: LEVOTHYROXINE NA 25 MCG TABLET (FP) ONE (03:07)
[2018-01-09] MEDS: METHADONE 80 MG, METHADONE 20 MG, METHADONE 5 MG PO SCH (06:21)
[2018-01-09] MEDS: METHOCARBAMOL 500 MG TABLET PO SCH ×3 (06:22→21:10)
[2018-01-09] MEDS: LEVOTHYROXINE 100 MCG, LEVOTHYROXINE 25 MCG PO SCH (06:22)
[2018-01-09] MEDS: GABAPENTIN 300 MG CAPSULE (FP) PO SCH ×3 (06:22→21:10)
[2018-01-09] MEDS ORDERED: PT OWN MED DRAWER 7, Y5N ONE (07:57)
[2018-01-09] MEDS: SERTRALINE HCL 50 MG TABLET (FP) PO SCH (10:12)
[2018-01-09] MEDS: NICOTINE 14 MG/24 HOURS TOPICAL PATCH TD SCH (10:12)
[2018-01-09] MEDS: PRENATAL VITAMINS W/ FOLIC ACID TABLET (FP) PO SCH (10:12)
[2018-01-09] MEDS: MINERAL OIL/PETROLAT/WATER TOPICAL CREAM 113 GM JAR TP SCH ×2 (10:12→21:11)
[2018-01-09] MEDS: MIRTAZAPINE 30 MG TABLET (FP) PO SCH (21:10)
[2018-01-09] MEDS: DOCUSATE SODIUM 100 MG CAPSULE (FP) PO SCH (21:10)
[2018-01-09] MEDS: THIAMINE HCL 100 MG TABLET (FP) PO SCH (21:10)
[2018-01-10] MEDS ORDERED: METHADONE HCL 5 MG TABLET ONE (03:10)
[2018-01-10] MEDS ORDERED: METHADONE HCL 40 MG DISPERSABLE TABLET ONE (03:10)
[2018-01-10] MEDS ORDERED: METHADONE HCL 10 MG TABLET ONE (03:10)
[2018-01-10] MEDS ORDERED: LEVOTHYROXINE NA 25 MCG TABLET (FP) ONE (03:11)
[2018-01-10] MEDS ORDERED: LEVOTHYROXINE NA 100 MCG TABLET (FP) ONE (03:11)
[2018-01-10] MEDS: METHADONE 80 MG, METHADONE 20 MG, METHADONE 5 MG PO SCH (06:33)
[2018-01-10] MEDS: METHOCARBAMOL 500 MG TABLET PO SCH ×3 (06:34→21:12)
[2018-01-10] MEDS: LEVOTHYROXINE 100 MCG, LEVOTHYROXINE 25 MCG PO SCH (06:34)
[2018-01-10] MEDS: GABAPENTIN 300 MG CAPSULE (FP) PO SCH ×3 (06:34→21:11)
[2018-01-10] MEDS ORDERED: PT OWN MED DRAWER 7, Y5N ONE (08:40)
[2018-01-10] MEDS: SERTRALINE HCL 50 MG TABLET (FP) PO SCH (10:09)
[2018-01-10] MEDS: NICOTINE 14 MG/24 HOURS TOPICAL PATCH TD SCH (10:09)
[2018-01-10] MEDS: PRENATAL VITAMINS W/ FOLIC ACID TABLET (FP) PO SCH (10:09)
[2018-01-10] MEDS: MINERAL OIL/PETROLAT/WATER TOPICAL CREAM 113 GM JAR TP SCH ×2 (10:11→22:39)
[2018-01-10] MEDS: DOCUSATE SODIUM 100 MG CAPSULE (FP) PO SCH (21:11)
[2018-01-10] MEDS: THIAMINE HCL 100 MG TABLET (FP) PO SCH (21:11)
[2018-01-10] MEDS: MIRTAZAPINE 30 MG TABLET (FP) PO SCH (21:11)
[2018-01-11] MEDS ORDERED: METHADONE HCL 5 MG TABLET ONE (05:50)
[2018-01-11] MEDS ORDERED: METHADONE HCL 10 MG TABLET ONE (05:51)
[2018-01-11] MEDS ORDERED: METHADONE HCL 40 MG DISPERSABLE TABLET ONE (05:51)
[2018-01-11] MEDS ORDERED: LEVOTHYROXINE NA 25 MCG TABLET (FP) ONE (05:52)
[2018-01-11] MEDS ORDERED: LEVOTHYROXINE NA 100 MCG TABLET (FP) ONE (05:52)
[2018-01-11] MEDS: GABAPENTIN 300 MG CAPSULE (FP) PO SCH ×3 (06:31→21:13)
[2018-01-11] MEDS: METHADONE 80 MG, METHADONE 20 MG, METHADONE 5 MG PO SCH (06:32)
[2018-01-11] MEDS: METHOCARBAMOL 500 MG TABLET PO SCH ×3 (06:32→21:13)
[2018-01-11] MEDS: LEVOTHYROXINE 100 MCG, LEVOTHYROXINE 25 MCG PO SCH (06:32)
[2018-01-11] MEDS ORDERED: PT OWN MED DRAWER 7, Y5N ONE (08:41)
[2018-01-11] MEDS: NICOTINE 14 MG/24 HOURS TOPICAL PATCH TD SCH (10:01)
[2018-01-11] MEDS: PRENATAL VITAMINS W/ FOLIC ACID TABLET (FP) PO SCH (10:02)
[2018-01-11] MEDS: SERTRALINE HCL 50 MG TABLET (FP) PO SCH (10:02)
[2018-01-11] MEDS: MINERAL OIL/PETROLAT/WATER TOPICAL CREAM 113 GM JAR TP SCH ×2 (10:03→21:15)
[2018-01-11] MEDS: MIRTAZAPINE 30 MG TABLET (FP) PO SCH (21:13)
[2018-01-11] MEDS: THIAMINE HCL 100 MG TABLET (FP) PO SCH (21:13)
[2018-01-11] MEDS: DOCUSATE SODIUM 100 MG CAPSULE (FP) PO SCH (21:13)
[2018-01-12] MEDS ORDERED: METHADONE HCL 5 MG TABLET ONE (05:38)
[2018-01-12] MEDS ORDERED: METHADONE HCL 10 MG TABLET ONE (05:39)
[2018-01-12] MEDS ORDERED: METHADONE HCL 40 MG DISPERSABLE TABLET ONE (05:39)
[2018-01-12] MEDS ORDERED: LEVOTHYROXINE NA 100 MCG TABLET (FP) ONE (05:40)
[2018-01-12] MEDS ORDERED: LEVOTHYROXINE NA 25 MCG TABLET (FP) ONE (05:40)
[2018-01-12] MEDS: GABAPENTIN 300 MG CAPSULE (FP) PO SCH ×3 (06:54→21:16)
[2018-01-12] MEDS: METHADONE 80 MG, METHADONE 20 MG, METHADONE 5 MG PO SCH (06:54)
[2018-01-12] MEDS: LEVOTHYROXINE 100 MCG, LEVOTHYROXINE 25 MCG PO SCH (06:55)
[2018-01-12] MEDS: METHOCARBAMOL 500 MG TABLET PO SCH ×3 (06:55→21:15)
[2018-01-12] MEDS: NICOTINE 14 MG/24 HOURS TOPICAL PATCH TD SCH (10:01)
[2018-01-12] MEDS: MINERAL OIL/PETROLAT/WATER TOPICAL CREAM 113 GM JAR TP SCH ×2 (10:01→21:17)
[2018-01-12] MEDS: SERTRALINE HCL 50 MG TABLET (FP) PO SCH (10:01)
[2018-01-12] MEDS: PRENATAL VITAMINS W/ FOLIC ACID TABLET (FP) PO SCH (10:01)
[2018-01-12] MEDS: ACETAMINOPHEN 325 MG TABLET (FP) PO PRN (11:39)
[2018-01-12] MEDS: IBUPROFEN 400 MG TABLET (FP) PO PRN (17:50)
[2018-01-12] MEDS: THIAMINE HCL 100 MG TABLET (FP) PO SCH (21:15)
[2018-01-12] MEDS: DOCUSATE SODIUM 100 MG CAPSULE (FP) PO SCH (21:15)
[2018-01-12] MEDS: MIRTAZAPINE 30 MG TABLET (FP) PO SCH (21:16)
[2018-01-13] MEDS ORDERED: METHADONE HCL 10 MG TABLET ONE (03:27)
[2018-01-13] MEDS ORDERED: METHADONE HCL 5 MG TABLET ONE (03:27)
[2018-01-13] MEDS ORDERED: LEVOTHYROXINE NA 100 MCG TABLET (FP) ONE (03:28)
[2018-01-13] MEDS ORDERED: LEVOTHYROXINE NA 25 MCG TABLET (FP) ONE (03:28)
[2018-01-13] MEDS ORDERED: METHADONE HCL 40 MG DISPERSABLE TABLET ONE (03:28)
[2018-01-13] MEDS: METHADONE 80 MG, METHADONE 20 MG, METHADONE 5 MG PO SCH (06:41)
[2018-01-13] MEDS: GABAPENTIN 300 MG CAPSULE (FP) PO SCH ×3 (06:42→21:18)
[2018-01-13] MEDS: METHOCARBAMOL 500 MG TABLET PO SCH ×3 (06:42→21:18)
[2018-01-13] MEDS: LEVOTHYROXINE 100 MCG, LEVOTHYROXINE 25 MCG PO SCH (06:42)
[2018-01-13] MEDS ORDERED: PT OWN MED DRAWER 7, Y5N ONE ×2 (08:32→12:26)
[2018-01-13] MEDS: SERTRALINE HCL 50 MG TABLET (FP) PO SCH (09:51)
[2018-01-13] MEDS: PRENATAL VITAMINS W/ FOLIC ACID TABLET (FP) PO SCH (09:51)
[2018-01-13] MEDS: MINERAL OIL/PETROLAT/WATER TOPICAL CREAM 113 GM JAR TP SCH ×2 (09:52→21:19)
[2018-01-13] MEDS: NICOTINE 14 MG/24 HOURS TOPICAL PATCH TD SCH (09:52)
[2018-01-13] MEDS: ACETAMINOPHEN 325 MG TABLET (FP) PO PRN (09:53)
--- NOTE | 2018-01-13 15:26 | PN ---
Psychiatric Progress Note Vital Signs: Vital Signs Period Temp Pulse Resp BP Sys/James Pulse Ox Last 24 Hr 98.1 F 59 16-18 118/79 Date of Session: 01/13/18 Chief Complaint:: Discharge visit HPI: Patient addressed Opioid and Anxiolytic dependence comorbid with Substance induced mood.sleep disorder. ROS: Significant for Hep C,Hypothyroidism. Current Medications: Active Medications Generic Name Dose Route Start Last Admin Trade Name Freq PRN Reason Stop Dose Admin Acetaminophen 650 mg 01/01/18 15:04 01/13/18 09:53 Tylenol - PO 650 mg Q4H PRN Administration FEVER Al Hydroxide/Mg Hydroxide 30 ml 01/01/18 15:04 Mylanta Oral Suspension - PO Q6H PRN DYSPEPSIA Docusate Sodium 300 mg 01/01/18 22:00 01/12/18 21:15 Colace - PO 300 mg HS EDGAR Administration Eucalyptus/Menthol/Phenol/Sorbitol 1 each 01/01/18 15:04 Cepastat Lozenge - MM Q4H PRN SORE THROAT Gabapentin 600 mg 01/01/18 15:30 01/13/18 13:40 Neurontin - PO 600 mg TID EDGAR Administration Guaifenesin 10 ml 01/01/18 15:04 Robitussin Dm - PO Q6H PRN COUGH Hydroxyzine Pamoate 50 mg 01/01/18 15:04 Vistaril - PO Q4H PRN AGITATION Ibuprofen 400 mg 01/01/18 15:04 01/12/18 17:50 Motrin - PO 400 mg Q6H PRN Administration Pain Level 4-6 Levothyroxine Sodium 100 mcg/ 125 mcg 01/02/18 07:00 01/13/18 06:42 Levothyroxine Sodium 25 mcg PO 125 mcg DAILY@0700 EDGAR Administration Loperamide HCl 4 mg 01/01/18 15:04 Imodium - PO Q6H PRN DIARRHEA Magnesium Citrate 300 ml 01/01/18 15:04 Citroma - PO Q48H PRN CONSTIPATION Magnesium Hydroxide 30 ml 01/01/18 15:04 Milk Of Magnesia - PO DAILY PRN CONSTIPATION Methadone HCl 80 mg/ Methadone 105 mg 01/12/18 06:00 01/13/18 06:41 HCl 20 mg/ Methadone HCl 5 mg PO 01/19/18 05:59 105 mg DAILY@0600 EDGAR Administration Methocarbamol 500 mg 01/05/18 14:00 01/13/18 13:40 Robaxin - PO 500 mg TID EDGAR Administration Mirtazapine 30 mg 01/01/18 22:00 01/12/18 21:16 Remeron - PO 30 mg HS EDGAR Administration Multi-Ingredient Lotion 1 applic 01/01/18 22:00 01/13/18 09:52 Eucerin (Small Jar) - TP 1 applic BID EDGAR Administration Nicotine 14 mg 01/01/18 15:15 01/13/18 09:52 Nicoderm Patch - TD 14 mg DAILY EDGAR Administration Nicotine Polacrilex 2 mg 01/01/18 15:04 Nicorette Gum - BUC Q2H PRN NICOTINE REPLACEMENT RX Multivit/Folic Acid/Iron 1 tab 01/02/18 10:00 01/13/18 09:51 Vitamins (Sjr) - PO 1 tab DAILY EDGAR Administration Pseudoephedrine/Triprolidine 1 combo 01/01/18 15:04 Actifed - PO TID PRN NASAL CONGESTION Sertraline HCl 100 mg 01/02/18 10:00 01/13/18 09:51 Zoloft - PO 100 mg DAILY EDGAR Administration Thiamine HCl 100 mg 01/01/18 22:00 01/12/18 21:15 Vitamin B1 - PO 100 mg HS EDGAR Administration Current Side Effect: No Lab tests ordered: No Lab tests reviewed: Yes Provider note:: Patient will complete this program tomorrow .She has met her treatment goals and will continue to address her issues on outpatient basis at [facility].Patient reports finding current medications: Zoloft 100 mg po daily,Neurontin 600 mg po tid and remeron 30 mg po hs help to cope with insomnia,anxiety,mood instability.Scripts for 30 days supply provided. Therpay provided focusing on relapse prevention. Patient is stable for discharge tomorrow 01/14/18. Total face to face time:: 30 Mental Status Exam - Mental Status Exam Alert and Oriented to: Time, Place, Person Cognitive Function: Grossly Intact Patient Appearance: Well Groomed Mood: Euthymic Affect: Appropriate, Mood Congruent Patient Behavior: Cooperative Speech Pattern: Clear Voice Loudness: Normal Thought Process: Goal Oriented Thought Disorder: Not Present Hallucinations: Denies Suicidal Ideation: Denies Homicidal Ideation: Denies Insight/Judgement: Fair Sleep: Fair Appetite: Good Muscle strength/Tone: Normal Gait/Station: Normal Psychiatric Treatment Plan - Problem List (1) Hepatitis C antibody positive in blood Current Visit: Yes (2) Substance induced mood disorder Current Visit: Yes (3) Substance-induced sleep disorder Current Visit: Yes (4) Hypothyroidism Current Visit: Yes (5) Nicotine dependence Current Visit: Yes Qualifiers: Nicotine product type: cigarettes Substance use status: uncomplicated Qualified Code(s): F17.210 - Nicotine dependence, cigarettes, uncomplicated (6) Opioid dependence on agonist therapy Current Visit: Yes (7) Anxiolytic dependence Current Visit: Yes
[2018-01-13] MEDS: DOCUSATE SODIUM 100 MG CAPSULE (FP) PO SCH (21:18)
[2018-01-13] MEDS: MIRTAZAPINE 30 MG TABLET (FP) PO SCH (21:18)
[2018-01-13] MEDS: THIAMINE HCL 100 MG TABLET (FP) PO SCH (21:18)
[2018-01-14] MEDS ORDERED: METHADONE HCL 5 MG TABLET ONE (03:28)
[2018-01-14] MEDS ORDERED: METHADONE HCL 40 MG DISPERSABLE TABLET ONE (03:28)
[2018-01-14] MEDS ORDERED: METHADONE HCL 10 MG TABLET ONE (03:28)
[2018-01-14] MEDS ORDERED: LEVOTHYROXINE NA 100 MCG TABLET (FP) ONE (03:29)
[2018-01-14] MEDS ORDERED: LEVOTHYROXINE NA 25 MCG TABLET (FP) ONE (03:29)
[2018-01-14] MEDS: GABAPENTIN 300 MG CAPSULE (FP) PO SCH (06:30)
[2018-01-14] MEDS: METHADONE 80 MG, METHADONE 20 MG, METHADONE 5 MG PO SCH (06:31)
[2018-01-14] MEDS: METHOCARBAMOL 500 MG TABLET PO SCH (06:31)
[2018-01-14] MEDS: LEVOTHYROXINE 100 MCG, LEVOTHYROXINE 25 MCG PO SCH (06:31)
[2018-01-14 06:42] VITALS: BP 110/70; PULSE 60; TEMP 98.4
[2018-01-14] MEDS ORDERED: PT OWN MED DRAWER 7, Y5N ONE (08:46)
[2018-01-14] MEDS: PRENATAL VITAMINS W/ FOLIC ACID TABLET (FP) PO SCH (09:57)
[2018-01-14] MEDS: SERTRALINE HCL 50 MG TABLET (FP) PO SCH (09:57)
[2018-01-14] MEDS: NICOTINE 14 MG/24 HOURS TOPICAL PATCH TD SCH (09:57)
[2018-01-14] MEDS: MINERAL OIL/PETROLAT/WATER TOPICAL CREAM 113 GM JAR TP SCH (09:58)
== END 2018-01-14 10:00 | disposition home or self-care (01) | DRG 772 ==
LOC: YASAS 13:34 → Y3E 13:35
PROVIDERS: ADMIT Psychiatry & Neurology Psychiatry; ATTEND Psychiatry & Neurology Psychiatry
PROC: HZ42ZZZ Group Counseling for Substance Abuse Treatment, Cognitive-Behavioral (ICD-10-PCS; principal; 2018-01-01)
DX: F13.20 Sedative, hypnotic or anxiolytic dependence, uncomplicated (principal); F11.20 Opioid dependence, uncomplicated; F17.210 Nicotine dependence, cigarettes, uncomplicated; F19.24 Other psychoactive substance dependence with psychoactive substance-induced mood disorder; F19.282 Other psychoactive substance dependence with psychoactive substance-induced sleep disorder; E03.9 Hypothyroidism, unspecified; B18.2 Chronic viral hepatitis C; Z88.2 Allergy status to sulfonamides

== ENCOUNTER 2021-02-09 12:31 | Inpatient (IN) | payer OTHER ==
[2021-02-09 13:03] VITALS: BMI 21.8
[2021-02-09] MEDS ORDERED: LOPERAMIDE HCL 2 MG CAPSULE PO PRN (17:00)
[2021-02-09] MEDS ORDERED: NICOTINE POLACRILEX 2 MG GUM BC PRN (17:00)
[2021-02-09] MEDS ORDERED: ACETAMINOPHEN 325 MG TABLET (FP) PO PRN (17:00)
[2021-02-09] MEDS ORDERED: IBUPROFEN 400 MG TABLET (FP) PO PRN (17:00)
[2021-02-09] MEDS ORDERED: P-EPHED 60MG/TRIPROLIDI 2.5MG TABLET PO PRN (17:00)
[2021-02-09] MEDS ORDERED: MAGNESIUM CITRATE 300 ML BOTTLE PO PRN (17:00)
[2021-02-09] MEDS ORDERED: guaiFENesin 200 MG/10 ML 10 ML UNIT-DOSE CUPS PO PRN (17:00)
[2021-02-09] MEDS ORDERED: MAG HYDROX/AL HYDROX/SIMETH 30 ML UNIT-DOSE CUP PO PRN (17:00)
[2021-02-09] MEDS ORDERED: MAGNESIUM HYDROX 2400MG/30ML ORAL SUSPENSION 30 ML CUP PO PRN (17:00)
[2021-02-09] MEDS ORDERED: TUBERCULIN PPD 5 TU/0.1ML VIAL ID ONE (19:47)
[2021-02-09] MEDS: PRENATAL VITAMINS W/ FOLIC ACID TABLET (FP) PO SCH (19:56)
[2021-02-09] MEDS: NICOTINE 7 MG/24 HOURS TOPICAL PATCH TD SCH (19:57)
[2021-02-09] MEDS: hydrOXYzine PAMOATE 25 MG CAPSULE (FP) PO SCH ×2 (19:57→21:36)
[2021-02-09] MEDS ORDERED: THIAMINE HCL 100 MG TABLET (FP) PO SCH (22:00)
[2021-02-09] MEDS ORDERED: MELATONIN 5 MG TABLETS PO SCH (22:00)
[2021-02-10] MEDS: hydrOXYzine PAMOATE 25 MG CAPSULE (FP) PO SCH ×2 (06:19→10:08)
[2021-02-10 06:41] VITALS: BP 118/94; PULSE 82; TEMP 97.8
[2021-02-10] MEDS: NICOTINE 7 MG/24 HOURS TOPICAL PATCH TD SCH (10:07)
[2021-02-10] MEDS: PRENATAL VITAMINS W/ FOLIC ACID TABLET (FP) PO SCH (10:07)
[2021-02-10] MEDS ORDERED: METHADONE HCL 10 MG TABLET PO SCH ×2 (11:45→12:06)
[2021-02-10] MEDS ORDERED: METHADONE 80 MG, METHADONE 20 MG PO SCH (12:06)
== END 2021-02-10 12:15 | disposition left against medical advice (07) | DRG 770 ==
LOC: YASAS 12:31 → Y5N 17:21
PROVIDERS: ADMIT Allergy & Immunology; ATTEND Allergy & Immunology
PROC: HZ42ZZZ Group Counseling for Substance Abuse Treatment, Cognitive-Behavioral (ICD-10-PCS; principal; 2021-02-09)
DX: F10.20 Alcohol dependence, uncomplicated (principal); F14.20 Cocaine dependence, uncomplicated; F11.20 Opioid dependence, uncomplicated; F17.210 Nicotine dependence, cigarettes, uncomplicated; E03.9 Hypothyroidism, unspecified; B19.20 Unspecified viral hepatitis C without hepatic coma; Z88.2 Allergy status to sulfonamides
CPT/HCPCS: 81025; 93005; 93010; C9803; U0003; U0005